=== PATIENT | male | born 1995 | race Caucasian/White ===

== ENCOUNTER 2016-09-05 23:05 | Emergency (ER) | payer MEDICAID, OTHER ==
[~2016-09-05] VITALS: Ht 185.4 cm; Wt 77.1 kg
[~2016-09-05 23:05] MED LIST: CIPR-225 PO; HYDR-3812 PO; ONDA4TAB8 SL; SULF1TAB38 PO
--- NOTE | 2016-09-06 00:50 | ED General ---
General Chief Complaint: Laceration Stated Complaint: RT FOOT LAC Nursing Triage Note: REPORTS HE STEPPED ON A PIECE OF BROKEN GLASS Nursing Sepsis Screen: No Definite Risk Source of Information: Patient Exam Limitations: No Limitations History of Present Illness Time Seen by Provider: 23:50 Initial Comments This 21-year-old young man presents to the emergency room with complaints of a laceration on the right heel. He stepped on a broken piece of glass on his back deck. He does not believe any foreign material remains. He requires a tetanus booster. He reports a significant amount of bleeding was present. Allergies and Home Medications Allergies Coded Allergies: No Known Drug Allergies (Unverified , 02/05/11) Home Medications Ciprofloxacin HCl 500 Mg Tablet, 500 MG PO BID, #20 Prescribed by: NEAL RUVALCABA on 02/26/15 230 Hydrocodone/Acetaminophen 1 Each Tablet, 1-2 EACH PO Q4H PRN for PAIN, #20 Prescribed by: NEAL RUVALCABA on 02/26/15 2307 Ondansetron 4 Mg Tab.rapdis, 4 MG SL Q4H PRN for NAUSEA/VOMITING, #10 Prescribed by: NEAL RUVALCABA on 02/26/15 230 Sulfamethoxazole/Trimethoprim 1 Each Tablet, 1 EACH PO BID, #10 Prescribed by: NEAL RUVALCABA on 09/06/16 0057 Constitutional: no symptoms reported Musculoskeletal: no symptoms reported Skin: see HPI Psychiatric/Neurological: No Symptoms Reported Past Jsjujer-Rkwual-Vhmsix Hx Patient Social History Alcohol Use: Denies Use Recreational Drug Use: No Smoking Status: Never a Smoker Recent Foreign Travel: No Contact w/Someone Who Travel: No Recent Infectious Disease Expo: No Recent Hopitalizations: No Seasonal Allergies Seasonal Allergies: No Surgeries HX Surgeries: No Respiratory Hx Respiratory Disorders: No Cardiovascular Hx Cardiac Disorders: No Neurological Hx Neurological Disorders: No Genitourinary Hx Genitourinary Disorders: No Gastrointestinal Hx Gastrointestinal Disorders: No Musculoskeletal Hx Musculoskeletal Disorders: No Endocrine Hx Endocrine Disorders: No HEENT HX ENT Disorders: No Cancer Hx Cancer: No Psychosocial Hx Psychiatric Problems: No Integumentary HX Skin/Integumentary Disorder: No Blood Transfusions Hx Blood Disorders: No Adverse Reaction to a Blood Tr: No Family Medical History Significant Family History: Renal Disease Physical Exam Vital Signs Vital Sign - Last 12Hours 09/05/16 23:41 Temp 97.2 Pulse 67 Resp 20 B/P (MAP) 132/88 Pulse Ox 99 O2 Delivery Room Air Capillary Refill : Less Than 3 Seconds General Appearance: No Apparent Distress, WD/WN HEENT: Normal ENT Inspection Respiratory: No Respiratory Distress Extremity: Other (Approximately 3 cm curvilinear shallow laceration on the right heel) Neurologic/Psychiatric: Alert, Oriented x3, No Motor/Sensory Deficits, Normal Mood/Affect, nursing 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 Wound was then approximated with Mastisol and Steri-Strips. Progress/Results/Core Measures Results/Orders My Orders Vital Signs/I&O Blood Pressure Mean: 103 Progress Note : Progress Note X-ray of the foot was obtained to ensure no foreign bodies remained. X-ray was normal. Wound was approximated with Steri-Strips after cleaning. Antibiotic was administered for infection prophylaxis. Tetanus booster was administered. Diagnostic Imaging Diagonstic Imaging: Xray Comments X-ray of the right foot was viewed by me. Report not yet available. No acute abnormalities or foreign bodies identified. Departure Impression Impression: Primary Impression: Laceration of foot Qualified Codes: S91.311A - Laceration without foreign body, right foot, initial encounter Disposition: 01 HOME, SELF-CARE Condition: Improved Departure-Patient Inst. Decision time for Depature: 00:35 Referrals: SANTOSH BROWNLEE DO (PCP) Primary Care Physician Patient Instructions: NO INSTRUCTIONS GIVEN Add. Discharge Instructions: Keep the wound covered when active until healed. Avoid submersion but you may shower as usual. Avoid walking as much as possible for the next 5 days. Complete your antibiotics as prescribed. Monitor the wound for signs of infection such as increasing pain, increasing swelling, increasing redness, fever, or puslike drainage. Return to care if you notice these symptoms. You may take Tylenol and/or ibuprofen for pain. Allow the Steri-Strips to slough off naturally. Do not peel them away. All discharge instructions reviewed with patient and/or family. Voiced understanding. Scripts Sulfamethoxazole/Trimethoprim (Bactrim Ds Tablet) 1 Each Tablet 1 EACH PO BID, #10 TAB Prov: NEAL WHEELER MD 09/06/16 Work/School Note: Work Release Form Date Seen in the Emergency Department: Sep 06, 2016 Return to Work: Sep 06, 2016 Other Restrictions Listed Below: Light duty with minimal walking and standing 48 hours NEAL WHEELER MD Sep 06, 2016 00:50
[2016-09-06] MEDS ORDERED: SULF1TAB35 PO (00:57)
[2016-09-06] MEDS ORDERED: TETANUS,DIPTH,PERTUSS P/F (BOOSTRIX) 0.5 ML VIAL IM ONE (01:00)
[2016-09-06] MEDS ORDERED: TRIM/SULFAMETH 160/800 (SEPTRA DS) TAB PO ONE (01:00)
[2016-09-06 01:26] VITALS: BP 0/0
--- NOTE | 2016-09-06 07:48 | Diagnostic Imaging Report ---
INDICATION: Laceration to the heel of the right foot FINDINGS: 2 views of the right foot demonstrate normal ossification. No fracture, dislocation or foreign body is present. IMPRESSION: Negative right foot. Dictated by: Dictated on workstation # [id number]
--- OUTSIDE RECORDS SUMMARY | 2016-10-07 01:06 | XMS REPORT ---
Author MARIAH [facility] eClinicalWorks Address Unknown Phone Unavailable Care Team Providers Care Supervisor Patching Name Role Phone MARIAH HAIDER CP Unavailable Allergies, Adverse Reactions, Alerts Substance Reaction Event Type N.K.D.A. Info Not Available Non Drug Allergy Problems Problem Type Condition Code Onset Dates Condition Status Problem Pain in joint, shoulder region 719.41 Active Problem Acute bronchitis 466.0 Active Problem Kidney stone N20.0 Active Problem Chest pain, unspecified 786.50 Active Assessment Kidney stone N20.0 Active Medications Medication Code System Code Instructions Start Date End Date Status Dosage Flomax [facility] [address]-22 0.4 MG Orally Once a day from repository Mar 16, 2015 Apr 15, 2015 1 capsule 30 minutes after the same meal each day Ketorolac Tromethamine [facility] [address]-04 10 MG Orally every 6 hrs Mar 16, 2015 Mar 21, 2015 1 tablet as needed Uroxatral [facility] [address]-13 10 MG Orally Once a day Mar 16, 2015 Apr 15, 2015 1 tablet immediately after the same meal Procedures Procedure Coding System Code Date Office Visit, Est Pt., Level 3 CPT-4 67945 Mar 16, 2015 Vital Signs Date/Time: Mar 16, 2015 Temperature 98.1 F Weight 176.2 lbs Height 70.5 in BMI 24.92 Index Blood Pressure Diastolic 70 mmHg Blood Pressure Systolic 110 mmHg Cardiac Monitoring Heart Rate 82 bpm BMIPercentile 72.16 % Wt Percentile 77.45 % Results No Known Results Summary Purpose eClinicalWorks Submission
--- OUTSIDE RECORDS SUMMARY | 2016-10-07 01:06 | XMS REPORT ---
Author Author CATIE KAUFMAN Organization e[employer] Address Unknown Phone Unavailable Care Team Providers Care Oven Unloader Name Role Phone CATIE KAUFMAN CP Unavailable Allergies, Adverse Reactions, Alerts Substance Reaction Event Type N.K.D.A. Info Not Available Non Drug Allergy Problems Problem Type Condition Code Onset Dates Condition Status Problem Acute bronchitis 466.0 Active Problem Chest pain, unspecified 786.50 Active Problem Pain in joint, shoulder region 719.41 Active Assessment Left sided abdominal pain 789.09 Active Medications Medication Code System Code Instructions Start Date End Date Status Dosage Zofran [facility] [address]-59 4 MG Orally every 6 hours prn 1 tablets Cipro [facility] [address]-59 500 MG Orally Twice a day- voucher Feb 28, 2015 Mar 10, 2015 1 tablet Procedures Procedure Coding System Code Date Office Visit, Est Pt., Level 3 CPT-4 79132 Feb 28, 2015 Vital Signs Date/Time: Feb 28, 2015 Temperature 98.3 F Weight 180.2 lbs Height 70.5 in BMI 25.49 Index Blood Pressure Diastolic 74 mmHg Blood Pressure Systolic 128 mmHg Cardiac Monitoring Heart Rate 84 bpm BMIPercentile 77.1 % Wt Percentile 81.22 % Results No Known Results Summary Purpose eClinicalWorks Submission
--- OUTSIDE RECORDS SUMMARY | 2016-10-07 01:06 | XMS REPORT ---
Author Author JUDY BURTON Organization e[employer] Address Unknown Phone Unavailable Care Team Providers Care Fall Internship Name Role Phone JUDY BURTON CP Unavailable Allergies, Adverse Reactions, Alerts Substance Reaction Event Type N.K.D.A. Info Not Available Non Drug Allergy Problems Problem Type Condition Code Onset Dates Condition Status Problem Pain in joint, shoulder region 719.41 Active Problem Acute bronchitis 466.0 Active Problem Kidney stone N20.0 Active Assessment Rib pain on left side R07.81 Active Assessment Bradycardia R00.1 Active Problem Chest pain, unspecified 786.50 Active Assessment Acute left-sided thoracic back pain M54.6 Active Medications Medication Code System Code Instructions Start Date End Date Status Dosage Ibuprofen [facility] [address]-29 800 MG Orally Three times a day with food Jan 15, 2016 Feb 14, 2016 1 tablet PredniSONE [facility] [address]-20 20 mg Orally Once a day Jan 15, 2016 Jan 20, 2016 1 tablet Procedures Procedure Coding System Code Date ELECTROCARDIOGRAM, TRACING CPT-4 28497 Jan 15, 2016 Office Visit, Est Pt., Level 3 CPT-4 97038 Jan 15, 2016 CHEST X-RAY CPT-4 61530 Jan 15, 2016 Vital Signs Date/Time: Jan 15, 2016 Cardiac Monitoring Heart Rate 86 bpm Weight 169 lbs Height 70.5 in BMI 23.90 Index Blood Pressure Diastolic 76 mmHg Blood Pressure Systolic 110 mmHg Results No Known Results Summary Purpose eClinicalWorks Submission
--- OUTSIDE RECORDS SUMMARY | 2016-10-07 01:06 | XMS REPORT ---
Author Author CATIE KAUFMAN Organization e[employer] Address Unknown Phone Unavailable Care Team Providers Care Ed Physicians Name Role Phone CATIE KAUFMAN CP Unavailable Allergies No Known Allergies Problems Problem Type Condition Code Onset Dates Condition Status Problem Acute bronchitis 466.0 Active Problem Chest pain, unspecified 786.50 Active Problem Pain in joint, shoulder region 719.41 Active Assessment Renal calculus, left N20.0 Active Assessment Abnormal finding on CT scan R93.8 Active Medications No Known Medications Results No Known Results Summary Purpose eClinicalWorks Submission
--- OUTSIDE RECORDS SUMMARY | 2016-10-07 01:06 | XMS REPORT | Continuity of Care Document ---
Author Author [facility] Address Unknown Phone Unavailable Allergies Active Description Code Type Severity Reaction Onset Reported/Identified Relationship to Patient Clinical Status Yes No Known Drug Allergies [id number] Drug Allergy Unknown N/ A 02/05/2011 Medications Problems Date Dx Coded Attending Type Code Diagnosis Diagnosed By 09/01/2008 GILLIAN OLSON APRN R 008.8 GASTROENTERITIS VIRAL 07/20/2009 GILLIAN OLSON APRN R 611.1 HYPERTROPHY OF RIGHT BREAST 09/30/2009 GILLIAN OLSON APRN R V06.5 DT, TETANUS-DIPHTHERIA [Td] ,TDAP 01/11/2010 GILLIAN OLSON APRN R V70.0 ROUTINE GENERAL MEDICAL EXAMINATION AT A HEALTH CARE FACILITY 05/28/2010 Ot 462 02/05/2011 Ot 682.3 06/27/2011 GILLIAN OLSON APRN R 466.0 BRONCHITIS, ACUTE 06/27/2011 GILLIAN OLSON APRN R 786.50 UNSPECIFIED CHEST PAIN 05/16/2014 GILLIAN OLSON APRN R 719.41 PAIN IN JOINT INVOLVING SHOULDER REGION 02/26/2015 SUMMER WAN, NEAL Humphries Ot 592.1 CALCULUS OF URETER 02/26/2015 SUMMER WAN, NEAL Humphries Ot 787.01 NAUSEA WITH VOMITING 02/26/2015 SUMMER WAN, NEAL Humphries Ot 789.04 ABDOMINAL PAIN, LEFT LOWER QUADRANT 03/03/2015 MADL, CATIE L SUPERVISOR OPENING AND PICKING Ot 789.09 03/23/2015 MADL, CATIE L SUPERVISOR OPENING AND PICKING Ot 789.09 05/03/2015 MADL, CATIE L SUPERVISOR OPENING AND PICKING Ot 789.09 05/03/2015 MADL, CATIE L SUPERVISOR OPENING AND PICKING Ot 789.09 05/10/2015 MADL, CATIE L SUPERVISOR OPENING AND PICKING Ot 789.09 09/05/2016 MADL, CATIE L SUPERVISOR OPENING AND PICKING Ot 789.09 ABDOMINAL PAIN, OTHER SPECIFIED SITE 09/06/2016 SUMMER WAN, NEAL Humphries Ot S91.311A LACERATION WITHOUT FOREIGN BODY, RIGHT F 09/06/2016 NEAL WHEELER MD Ot W25.XXXA CONTACT WITH SHARP GLASS, INITIAL ENCOUN 09/06/2016 NEAL WHEELER MD Ot Y99.8 OTHER EXTERNAL CAUSE STATUS 09/06/2016 NEAL WHEELER MD Ot Z23 ENCOUNTER FOR IMMUNIZATION 09/06/2016 NEAL WHEELER MD Ot S91.311A LACERATION WITHOUT FOREIGN BODY, RIGHT F 09/06/2016 NEAL WHEELER MD Ot W25.XXXA CONTACT WITH SHARP GLASS, INITIAL ENCOUN 09/06/2016 NEAL WHEELER MD Ot Y99.8 OTHER EXTERNAL CAUSE STATUS 09/06/2016 NEAL WHEELER MD Ot Z23 ENCOUNTER FOR IMMUNIZATION Procedures Results Encounters ACCT No. Visit Date/Time Discharge Status Pt. Type Provider Facility Loc./Unit Complaint [id number] 05/16/2014 14:43:00 05/16/2014 23: 59:59 CLS Outpatient GILLIAN OLSON APRN
--- OUTSIDE RECORDS SUMMARY | 2016-10-07 01:06 | XMS REPORT | Continuity of Care Document ---
Author Author [facility] Organization [facility] Address Unknown Phone Unavailable Care Team Providers Care Drawing Frame Tender Name Role Phone Rimma Rangel PCP [phone] Source Comments Some departments are not documenting in the electronic medical record. If you do not see the information that you expected, contact Release of Information in the Health Information Management department at [phone] for further assistance in locating additional records.[facility] Active Allergies and Adverse Reactions No Known Allergies Current Medications Prescription Sig. Disp. Refills Start End Date Status Date oxyCODONE/acetaminophen Take 1-2 Tabs by mouth 30 Tab 0 08/31/19 Active (PERCOCET; ENDOCET; every 4 hours as needed 16 ROXICET) 5/325 mg tablet for Pain Earliest Fill Date: 08/31/15 senna (SENNA) 8.6 mg Take 2 Tabs by mouth at 90 Tab 3 08/31/19 Active tablet bedtime daily. 16 tamsulosin (FLOMAX) 0.4 Take 1 Cap by mouth 60 Cap 0 08/31/19 Active mg capsule daily. 16 Active Problems Problem Noted Date Kidney stone 04/10/2015 Overview: 04/10/15: OSH CT demonstrates 8.2 mm & 2 mm L renal stones. Also demonstrated 4.5 mm stone in the bladder that he states that has since passed. Stone sent for analysis at [facility] - requested stone analysis. 07/31/15 - + L flank pain. KUB with L renal calculi L ast Assessment & Plan: 19M with persistent, symptomatic L nephrolithiasis desiring treatment. Discussed options with patient including observation, ESWL, or URS with LL. Patient has elected to pursue ESWL. - Patient consented and posted for ESWL on 08/31/15 - Urine culture, BMP - DOS orders placed Social History Tobacco Use Types Packs/Day Years Used Date Never Smoker Smokeless Tobacco: Never Used Alcohol Use Drinks/Week oz/Week Comments No 0 Standard 0.0 drinks or equivalent Last Filed Vital Signs Vital Sign Reading Time Taken Blood Pressure 139/76 08/31/2015 11:15 AM CDT Pulse 53 08/31/2015 11:15 AM CDT Temperature 36.8 C (98.2 F) 08/31/2015 11:15 AM CDT Respiratory Rate - - Height 1.88 m (6' 2.02") 08/31/2015 8:03 AM CDT Weight 76.2 kg (167 lb 15.9 oz) 08/31/2015 8:03 AM CDT Body Mass Index 21.56 08/31/2015 8:03 AM CDT Oxygen Saturation 96% 08/31/2015 11:15 AM CDT Plan of Care Health Maintenance Due Date Last Done Comments Physical (Comprehensive) 2002 Exam Hpv Vaccines (#1) 2006 Pertussis Vaccine 2006 Tetanus Vaccine 2012 Influenza Vaccine 01/31/2017 Results from Last 3 Months Not on file
== END 2016-09-06 01:26 | disposition home or self-care (01) ==
LOC: EDUNIT# 23:05 → ER 23:14
DX: S91.311A Laceration without foreign body, right foot, initial encounter (principal); Z23 Encounter for immunization; W25.XXXA Contact with sharp glass, initial encounter; Y99.8 Other external cause status
CPT/HCPCS: 73620; 90471; 90715

== ENCOUNTER 2023-01-16 00:58 | Emergency (ER) | payer SELFPAY ==
[~2023-01-16] VITALS: Ht 185 cm; Wt 77.0 kg
[~2023-01-16 00:58] MED LIST changes: +ACHD5005 PO; -HYDR-3812 PO
[2023-01-16] MEDS ORDERED: KETOROLAC INJ 30 MG/ML VIAL IVP STA (01:08)
[2023-01-16] MEDS ORDERED: ONDANSETRON 4 MG/2 ML (SDV) Z0FRAN IVP ONE (01:15)
[2023-01-16] MEDS ORDERED: LACTATED RINGERS 1,000 ML IV ONE (01:15)
[2023-01-16 01:24] LABS: BASOPHILS # (AUTO) 0.1 10^3/uL (0.0-0.1); BASOPHILS % (AUTO) 1 % (0-10); EOSINOPHILS # (AUTO) 0.4 10^3/uL (0.0-0.3); EOSINOPHILS % (AUTO) 4 % (0-10); HEMATOCRIT 46 % (40-54); HEMOGLOBIN 15.8 g/dL (13.3-17.7); LYMPHOCYTES # (AUTO) 4.2 10^3/uL (1.0-4.0); LYMPHOCYTES % (AUTO) 41 % (12-44); MEAN CORPUSCULAR HEMOGLOBIN 29 pg (25-34); MEAN CORPUSCULAR HGB CONC 34 g/dL (32-36); MEAN CORPUSCULAR VOLUME 85 fL (80-99); MEAN PLATELET VOLUME 9.1 fL (9.0-12.2); MONOCYTES # (AUTO) 0.8 10^3/uL (0.0-1.0); MONOCYTES % (AUTO) 8 % (0-12); NEUTROPHILS # (AUTO) 4.8 10^3/uL (1.8-7.8); NEUTROPHILS % (AUTO) 47 % (42-75); PLATELET COUNT 283 10^3/uL (130-400); WHITE BLOOD COUNT 10.3 10^3/uL (4.3-11.0)
[2023-01-16 01:34] LABS: ALBUMIN 4.8 GM/DL (3.2-4.5); CHLORIDE 105 MMOL/L (98-107); POTASSIUM 2.9 MMOL/L (3.6-5.0); SODIUM 142 MMOL/L (135-145)
[2023-01-16 01:35] LABS: AMYLASE 31 U/L (25-125); CALCIUM 9.4 MG/DL (8.5-10.1)
[2023-01-16 01:36] LABS: GLUCOSE 103 MG/DL (70-105); TOTAL PROTEIN 7.6 GM/DL (6.4-8.2)
[2023-01-16 01:38] LABS: BILIRUBIN,TOTAL 0.5 MG/DL (0.1-1.0); CARBON DIOXIDE 22 MMOL/L (21-32)
[2023-01-16 01:40] LABS: ALKALINE PHOSPHATASE 61 U/L (40-136); CREATININE SERUM 1.05 MG/DL (0.60-1.30); GFR ESTIMATED 100
[2023-01-16 01:41] LABS: BUN/CREATININE RATIO 16
[2023-01-16 01:43] LABS: ALANINE AMINOTRANSFERASE 26 U/L (0-55); LIPASE 36 U/L (8-78)
[2023-01-16 02:13] LABS: CLARITY,URINE SL CLOUDY; COLOR,URINE YELLOW
[2023-01-16 02:16] LABS: GLUCOSE, URINE (UA) NEGATIVE (NEGATIVE); PROTEIN,URINE TRACE (NEGATIVE)
[2023-01-16 02:17] LABS: AMORPHOUS SEDIMENT,UR MOD AMOR PHOSPHATE /LPF; BACTERIA,URINE FEW /HPF; BILIRUBIN,URINE NEGATIVE (NEGATIVE); KETONES,URINE 1+ (NEGATIVE); LEUKOCYTE ESTERASE ,URINE NEGATIVE (NEGATIVE); NITRITE,URINE NEGATIVE (NEGATIVE); SQUAMOUS EPITHELIAL CELL,UR 0-2 /HPF
--- NOTE | 2023-01-16 02:19 | ED GU-Male ---
General Chief Complaint: Abdominal/GI Problems Stated Complaint: LEFT SIDE BACK PAIN Nursing Triage Note: LEFT LOWER BACK PAIN, KNOWN KIDNEY STONE. Source: patient History of Present Illness Date Seen by Provider: Jan 16, 2023 Time Seen by Provider: 01:04 Initial Comments PT ARRIVES VIA POV FROM HOME C/O LEFT FLANK PAIN RADIATING TO LLQ STATES HE HAS KNOWN ABOUT THIS KIDNEY STONE FOR 1 1/2 MONTHS. WAS SEEN AT [facility] 2 WEEKS AGO, AND IS TO HAVE A SONOGRAM IN THE MORNING FOR IT. THIS PAIN BEGAN AT 2129, WITH NAUSEA / VOMITING AROUND 2029. VOMITED X 1. PT HAS BEEN DRINKING WATER AND KEEPING IT DOWN--PT ARRIVES WITH A BOTTLE OF WATER HE HAS NOT HAD ANY DIFFICULTY URINATING AND NO OBVIOUS HEMATURIA NO FEVER PT TOOK 1 IBUPROFEN 200 MG EARLIER, NO RELIEF. PT HAS HAD LITHOTRIPSY AT SEVERAL YEARS AGO HE HAS NOT SEEN A UROLOGIST SINCE THEN. PCP: [facility] Allergies and Home Medications Allergies Coded Allergies: No Known Drug Allergies (Unverified , 02/05/11) Patient Home Medication List Home Medication List Reviewed: Yes Ciprofloxacin HCl (Ciprofloxacin HCl) 500 Mg Tablet, 500 MG PO BID Prescribed by: DIAN KAYE on 01/16/23448 Hydrocodone/Ibuprofen (Hydrocodone-Ibuprofen 7.5-200) 7.5 Mg-200 Mg Tablet, 1-2 TAB PO Q4H PRN for PAIN-MODERATE Prescribed by: DINA KAYE on 01/16/23449 Ondansetron (Ondansetron Odt) 8 Mg Tab.rapdis, 8 MG PO Q6H Prescribed by: DINA KAYE on 01/16/23448 Tamsulosin HCl (Flomax) 0.4 Mg Cap, 0.4 MG PO DAILY Prescribed by: DINA KAYE on 01/16/23448 Discontinued Medications Ciprofloxacin HCl (Cipro) 500 Mg Tablet, 500 MG PO BID Discontinued Reason: No Longer Taking Prescribed by: NEAL RUVALCABA on 02/26/152306 Last Action: Discontinued Hydrocodone Bit/Acetaminophen (Lortab 5 Mg Tablet) 1 Each Tablet, 1-2 EACH PO Q4H PRN for PAIN Discontinued Reason: No Longer Taking Prescribed by: NEAL RUVALCABA on 02/26/152306 Last Action: Discontinued Ondansetron (Zofran Odt) 4 Mg Tab.rapdis, 4 MG SL Q4H PRN for NAUSEA/VOMITING Discontinued Reason: No Longer Taking Prescribed by: NEAL RUVALCABA on 02/26/15 230 Last Action: Discontinued Sulfamethoxazole/Trimethoprim (Bactrim Ds Tablet) 1 Each Tablet, 1 EACH PO BID Discontinued Reason: No Longer Taking Prescribed by: NEAL RUVALCABA on 09/06/16 0057 Last Action: Discontinued Review of Systems Review of Systems Constitutional: no symptoms reported Respiratory: no symptoms reported Cardiovascular: no symptoms reported Gastrointestinal: see HPI Genitourinary: see HPI Musculoskeletal: see HPI Skin: no symptoms reported Psychiatric/Neurological: No Symptoms Reported Endocrine: No Symptoms Reported Past Tywidia-Awsncv-Ywyikh Hx Patient Social History Tobacco Use?: No Substance use?: No Alcohol Use?: No Pt feels they are or have been: No Seasonal Allergies Seasonal Allergies: No Past Medical History Surgery/Hospitalization HX: LITHOTRYPSY, KIDNEY STONES Surgeries: Yes (LITHOTRIPSY) Renal Respiratory: No Cardiac: No Neurological: No Genitourinary: Yes Kidney Stones Gastrointestinal: No Musculoskeletal: No Endocrine: No HEENT: No Cancer: No Psychosocial: No Integumentary: No Blood Disorders: No Adverse Reaction/Blood Tranf: No Family Medical History Renal Disease Physical Exam Vital Signs Vital Signs - First Documented 01/16/23 01:03 Temp 35.7 Pulse 63 Resp 18 B/P (MAP) 122/90 (101) Pulse Ox 100 O2 Delivery Room Air Capillary Refill : Less Than 3 Seconds Height, Weight, BMI Height: 6'1.00" Weight: 170lbs. oz. 77.749551vf; 22.00 BMI Method:Stated General Appearance: WD/WN, other (ANXIOUS, DRAMATIC, MOANING, HYPERVENTILATING. ) Cardiovascular: regular rate, rhythm Respiratory: normal breath sounds Gastrointestinal: soft, tenderness (LLQ AND LEFT FLANK) Back: CVA tenderness (L) Extremities: normal inspection Neurologic/Psychiatric: no motor/sensory deficits, alert, oriented x 3 Skin: normal color, warm/dry, tattoos/piercings (EXTENSIVE TATTOOS) Progress/Results/Core Measures Suspected Sepsis SIRS Temperature: Pulse: 63 Respiratory Rate: 18 Laboratory Tests 01/16/23 01:09: White Blood Count 10.3 Blood Pressure 122 /90 Mean: 101 Laboratory Tests 01/16/23 01:09: Creatinine 1.05, Platelet Count 283, Total Bilirubin 0.5 Results/Orders Lab Results Laboratory Tests Test 01/16/23 01:09 01/16/23 02:00 Range/Units White Blood Count 10.3 4.3-11.0 10^3/uL Red Blood Count 5.42 4.30-5.52 10^6/uL Hemoglobin 15.8 13.3-17.7 g/dL Hematocrit 46 40-54 % Mean Corpuscular Volume 85 80-99 fL Mean Corpuscular Hemoglobin 29 25-34 pg Mean Corpuscular Hemoglobin Concent 34 32-36 g/dL Red Cell Distribution Width 12.9 10.0-14.5 % Platelet Count 283 130-400 10^3/uL Mean Platelet Volume 9.1 9.0-12.2 fL Immature Granulocyte % (Auto) 0 % Neutrophils (%) (Auto) 47 42-75 % Lymphocytes (%) (Auto) 41 12-44 % Monocytes (%) (Auto) 8 0-12 % Eosinophils (%) (Auto) 4 0-10 % Basophils (%) (Auto) 1 0-10 % Neutrophils # (Auto) 4.8 1.8-7.8 10^3/uL Lymphocytes # (Auto) 4.2 H 1.0-4.0 10^3/uL Monocytes # (Auto) 0.8 0.0-1.0 10^3/uL Eosinophils # (Auto) 0.4 H 0.0-0.3 10^3/uL Basophils # (Auto) 0.1 0.0-0.1 10^3/uL Immature Granulocyte # (Auto) 0.0 0.0-0.1 10^3/uL Sodium Level 142 135-145 MMOL/L Potassium Level 2.9 L 3.6-5.0 MMOL/L Chloride Level 105 98-107 MMOL/L Carbon Dioxide Level 22 21-32 MMOL/L Anion Gap 15 H 5-14 MMOL/L Blood Urea Nitrogen 17 7-18 MG/DL Creatinine 1.05 0.60-1.30 MG/DL Estimat Glomerular Filtration Rate 100 BUN/Creatinine Ratio 16 Glucose Level 103 70-105 MG/DL Calcium Level 9.4 8.5-10.1 MG/DL Corrected Calcium 8.5-10.1 MG/DL Total Bilirubin 0.5 0.1-1.0 MG/DL Aspartate Amino Transf (AST/SGOT) 24 5-34 U/L Alanine Aminotransferase (ALT/SGPT) 26 0-55 U/L Alkaline Phosphatase 61 40-136 U/L Total Protein 7.6 6.4-8.2 GM/DL Albumin 4.8 H 3.2-4.5 GM/DL Amylase Level 31 25-125 U/L Lipase 36 8-78 U/L Urine Color YELLOW Urine Clarity SL CLOUDY Urine pH 7.0 5-9 Urine Specific [place] 1.020 1.016-1.022 Urine Protein TRACE H NEGATIVE Urine Glucose (UA) NEGATIVE NEGATIVE Urine Ketones 1+ H NEGATIVE Urine Nitrite NEGATIVE NEGATIVE Urine Bilirubin NEGATIVE NEGATIVE Urine Urobilinogen 0.2 < = 1.0 MG/DL Urine Leukocyte Esterase NEGATIVE NEGATIVE Urine RBC (Auto) 3+ H NEGATIVE Urine RBC 10-25 H /HPF Urine WBC NONE /HPF Urine Squamous Epithelial Cells 0-2 /HPF Urine Crystals PRESENT H /LPF Urine Amorphous Sediment MOD RONEY PHOSPHATE H /LPF Urine Bacteria FEW H /HPF Urine Casts NONE /LPF Urine Mucus SMALL H /LPF Urine Culture Indicated NO Urine Opiates Screen NEGATIVE NEGATIVE Urine Oxycodone Screen NEGATIVE NEGATIVE Urine Methadone Screen NEGATIVE NEGATIVE Urine Propoxyphene Screen NEGATIVE NEGATIVE Urine Barbiturates Screen NEGATIVE NEGATIVE Ur Tricyclic Antidepressants Screen NEGATIVE NEGATIVE Urine Phencyclidine Screen NEGATIVE NEGATIVE Urine Amphetamines Screen NEGATIVE NEGATIVE Urine Methamphetamines Screen NEGATIVE NEGATIVE Urine Benzodiazepines Screen NEGATIVE NEGATIVE Urine Cocaine Screen NEGATIVE NEGATIVE Urine Cannabinoids Screen POSITIVE H NEGATIVE My Orders Orders - DINA KAYE DO Ed Iv/Invasive Line Start (01/16/23 01:08) Ct Abd/Pelvis Wo(Kidney Stone) (01/16/23 01:08) Abdomen/Kub 1view (01/16/23 01:08) Amylase (01/16/23 01:08) Cbc With Automated Diff (01/16/23 01:08) Comprehensive Metabolic Panel (01/16/23 01:08) Drug Screen Stat (Urine) (01/16/23 01:08) Lipase (01/16/23 01:08) Ua Culture If Indicated (01/16/23 01:08) Ondansetron Injection (Zofran Injectio (01/16/23 01:15) Ed Iv/Invasive Line Start (01/16/23 01:08) Lactated Ringers (Lr 1000 Ml Iv Solution (01/16/23 01:15) Ketorolac Injection (Ketorolac Injection (01/16/23 01:08) Morphine Injection (Morphine Injection (01/16/23 03:15) Tamsulosin Capsule (Flomax Capsule) (01/16/23 03:15) Medications Given in ED Current Medications Medications Dose Ordered Sig/Lencho Route Start Time Stop Time Status Last Admin Dose Admin Lactated Ringer's 1,000 ml @ 0 mls/hr Q0M ONCE IV 01/16/23 01:15 01/16/23 01:16 DC 01/16/23 01:14 0 MLS/HR Morphine Sulfate 4 mg ONCE ONCE IVP 01/16/23 03:15 01/16/23 03:16 DC 01/16/23 03:07 4 MG Ondansetron HCl 4 mg ONCE ONCE IVP 01/16/23 01:15 01/16/23 01:16 DC 01/16/23 01:14 4 MG Vital Signs/I&O 01/16/23 01:03 Temp 35.7 Pulse 63 Resp 18 B/P (MAP) 122/90 (101) Pulse Ox 100 O2 Delivery Room Air Capillary Refill : Less Than 3 Seconds Blood Pressure Mean: 101 Progress Note : Progress Note GIVEN: -IV FLUIDS -TORADOL -ZOFRAN -MORPHINE -FLOMAX LABS: -CBC UNREMARKABLE -CMP UNREMARKABLE -UA WITH 3+ BLOOD, 10-25 RBC -UDS + FOR [facility] MARKED DELAY IN OBTAINING CT REPORT 0300--RN HAS CONTACTED [facility]. STILL NO REPORT. HAS NOT BEEN ASSIGNED TO RADIOLOGIST YET 5690--[facility] IS CONTACTING [facility] TO EXPEDITE READING. CT ABDOMEN/PELVIS--7 MM STONE IN LEFT URETER, WITH MILD HYDRONEPHROSIS, PER [facility] REPORT SYMPTOMS MUCH IMPROVED/RESOLVED AT DISMISSAL DISCUSSED TEST RESULTS, ANTICIPATED COURSE, NEED FOR FOLLOW UP WITH UROLOGIST, MEDICATIONS, RETURN PRECAUTIONS NO DETERIORATION IN PT'S CONDITION DURING ER STAY REVIEWED PRIOR RECORDS, ALL ER VISITS REVIEWED PRIOR RECORDS--ALL ER VISITS, LAST ONE IN 2017. Diagnostic Imaging Comments KUB--NO ACUTE PROCESS, PENDING RADIOLOGIST REVIEW CT ABDOMEN/PELVIS--PER [facility] VIA FAX AT 3349 -OBSTRUCTIVE 6 X 4 X 7 MM STONE IN LEFT MID URETER, WITH MILD LEFT HYDRONEPHROSIS AND PERINEPHRIC AND PERIURETERAL STRANDING -NON OBSTRUCTIVE 1.1 CM STONE IN LEFT KIDNEY -DIFFUSE BLADDER WALL THICKENING -NO OTHER ACUTE FINDINGS Reviewed: Reviewed by Me Departure Impression Primary Impression: Left ureteral stone Disposition: 01 HOME, SELF-CARE Condition: Improved Departure-Patient Inst. Referrals: [facility] (PCP/Family) Primary Care Physician Patient Instructions: Kidney Stone Diet, Kidney Stone, Adult ED Add. Discharge Instructions: LOTS OF CLEAR LIQUIDS KEEP YOUR APPOINTMENT TODAY FOR ULTRASOUND FOLLOW UP WITH UROLOGIST OF CHOICE SOON POSSIBLE--THERE ARE UROLOGY SERVICES IN [place] AND AT [facility] IN [place], OR YOU MAY RETURN TO WHERE YOU HAVE HAD PRIOR UROLOGICAL PROCEDURES. RETURN TO ER IF YOUR SYMPTOMS WORSEN All discharge instructions reviewed with patient and/or family. Voiced u nderstanding. Scripts Ondansetron (Ondansetron Odt) 8 Mg Tab.rapdis 8 MG PO Q6H, #10 TAB Prov: DINA KAYE DO 01/16/23 Ciprofloxacin HCl (Ciprofloxacin HCl) 500 Mg Tablet 500 MG PO BID, #14 TAB Prov: DINA KAYE DO 01/16/23 Tamsulosin HCl (Flomax) 0.4 Mg Cap 0.4 MG PO DAILY, #10 CAP Prov: DINA KAYE DO 01/16/23 Hydrocodone/Ibuprofen (Hydrocodone-Ibuprofen 7.5-200) 7.5 Mg-200 Mg Tablet 1-2 TAB PO Q4H PRN for PAIN-MODERATE MDD 6 TABS for 7 Days, #20 TAB Prov: DINA KAYE DO 01/16/23 DINA KAYE DO Jan 16, 2023 02:19
[2023-01-16 02:20] LABS: AMPHETAMINE SCREEN, URINE NEGATIVE (NEGATIVE); BARBITURATE SCREEN URINE NEGATIVE (NEGATIVE); BENZODIAZEPINES SCREEN URINE NEGATIVE (NEGATIVE); CANNABINOID SCREEN, URINE POSITIVE (NEGATIVE); COCAINE SCREEN URINE NEGATIVE (NEGATIVE); METHADONE STAT NEGATIVE (NEGATIVE); OPIATE SCREEN URINE NEGATIVE (NEGATIVE); OXYCODONE STAT NEGATIVE (NEGATIVE); PROPOXYPHENE STAT NEGATIVE (NEGATIVE); TRICYCLIC ANTIDEPRESSANTS SCRE NEGATIVE (NEGATIVE)
[2023-01-16] MEDS ORDERED: morphine INJ 4 MG/ML 1 ML (VIAL/SYRINGE) IVP ONE (03:15)
[2023-01-16] MEDS ORDERED: TAMSULOSIN 0.4 MG (FLOMAX) CAP PO SCH (03:15)
[2023-01-16] MEDS ORDERED: ONDA8TAB13 PO (04:49)
[2023-01-16] MEDS ORDERED: TMSL.4C PO (04:49)
[2023-01-16] MEDS ORDERED: HYDR-4085 PO (04:49)
[2023-01-16] MEDS ORDERED: CIPR500T5 PO (04:49)
[2023-01-16 04:52] VITALS: BP 134/93
--- NOTE | 2023-01-16 07:02 | Diagnostic Imaging Report ---
CT ABD/PELVIS WO(KIDNEY STONE) TECHNIQUE: Unenhanced CT imaging of the abdomen and pelvis was performed. 2-D reformats are created and submitted for interpretation. Automatic exposure controls were utilized to optimize patient dose. INDICATION: Flank pain COMPARISON: 03/01/2015 FINDINGS: Lower chest: The lung bases are clear. No pericardial or pleural effusion. Peritoneum: No free intraperitoneal air or fluid. Liver and biliary system: Unenhanced liver is normal. The gallbladder is normal. No biliary duct dilation. Spleen and Pancreas: Spleen is normal. Unenhanced pancreas is grossly normal. Adrenals: Normal. tract: Mild left hydronephrosis due to a 5 mm stone in the proximal one 3rd of the left ureter. Stable 8 mm stone in the upper pole left kidney. Additional nonobstructing 4 mm stone is present lower pole the left kidney. Right-sided ureteral stone. Partially exophytic 0.7 x 1.3 cm nodule in the mid right kidney is new since prior exam. Urinary bladder is decompressed. GI tract: Stomach is decompressed. No bowel obstruction. No pericolonic inflammatory changes. Appendix is normal. Vasculature and Lymph nodes: Normal caliber aorta. No abdominal or pelvic lymphadenopathy. Musculoskeletal: No concerning osseous lesion. IMPRESSION: 1. Mild left hydronephrosis due to a 5 mm stone located in the proximal left ureter. 2. Indeterminate right renal nodule most likely a cyst. Follow-up nonemergent renal ultrasound is advised to confirm this is indeed cystic in nature. Dictated by: Dictated on workstation # [id number]
--- NOTE | 2023-01-16 08:08 | Diagnostic Imaging Report ---
ABDOMEN/KUB 1VIEW INDICATION: Abdominal pain COMPARISON: CT abdomen pelvis performed earlier same day TECHNIQUE: Supine AP view the abdomen FINDINGS: The 5 mm proximal ureteral stone is seen along the left lateral margin of the L3-L4 disc space. Nonobstructing mineralization the upper pole left kidney is again noted. Nonobstructive bowel gas pattern. Normal regional skeleton. IMPRESSION: The 5 mm proximal left ureteral stone is located at the level of the L3-L4 disc space. Dictated by: Dictated on workstation # [id number]
== END 2023-01-16 04:55 | disposition home or self-care (01) ==
LOC: EDUNIT# 00:58 → ER 01:01
DX: N13.2 Hydronephrosis with renal and ureteral calculous obstruction (principal)
CPT/HCPCS: 36415; 74018; 74176; 80053; 80306; 81000; 82150; 83690; 85025

== ENCOUNTER 2023-01-25 02:05 | Emergency (ER) | payer BC ==
[~2023-01-25] VITALS: Ht 185.5 cm; Wt 77.0 kg
[~2023-01-25 02:05] MED LIST changes: +CIPR500T5 PO; +HYDR-4085 PO; +ONDA8TAB13 PO; +TMSL.4C PO
[2023-01-25] MEDS ORDERED: morphine INJ 10 MG/ML 1ML (SYR OR VIAL) IVP STA ×2 (02:18→02:43)
--- NOTE | 2023-01-25 02:22 | ED Abdominal Pain ---
General Chief Complaint: Abdominal/GI Problems Stated Complaint: LEFT SIDE KIDNEY STONE Source of Information: Patient Exam Limitations: No Limitations History of Present Illness Date Seen by Provider: Jan 25, 2023 Time Seen by Provider: 02:12 Initial Comments Patient is a 27-year-old male who presents to the emergency room with a chief complaint of severe left-sided abdominal pain. He was seen in the emergency department approximately 10 days ago and diagnosed with what was thought to be a 7 mm proximal ureteral stone. He had follow-up with [facility] and 2 referrals for urology were sent out. Patient states he has been doing well taking pain medications until this evening when he developed pain that went from 0 to "10" very quickly. He has had persistent nausea and vomiting. He is passing "very little" urine. No fevers or chills. His significant other who is at the bedside states that he was referred to a general surgeon as well-unsure what that was for. No reported fevers or chills. Normal bowel movements. Timing/Duration: 1-3 Hours Severity/Quality: Severe Location: LUQ, LLQ Radiation: Groin Associated Symptoms: Diaphoresis, Nausea/Vomiting Allergies and Home Medications Allergies Coded Allergies: No Known Drug Allergies (Unverified , 02/05/11) Patient Home Medication List Home Medication List Reviewed: Yes Ciprofloxacin HCl (Ciprofloxacin HCl) 500 Mg Tablet, 500 MG PO BID Prescribed by: DINA KAYE on 01/16/23448 Hydrocodone/Ibuprofen (Hydrocodone-Ibuprofen 7.5-200) 7.5 Mg-200 Mg Tablet, 1-2 TAB PO Q4H PRN for PAIN-MODERATE Prescribed by: DINA KAYE on 01/16/23 045 Ondansetron (Ondansetron Odt) 8 Mg Tab.rapdis, 8 MG PO Q6H Prescribed by: DINA KAYE on 01/16/23448 Oxycodone HCl/Acetaminophen (Percocet 5-325 mg Tablet) 5 Mg-325 Mg Tablet, 1 TAB PO Q6H PRN for PAIN-MODERATE Prescribed by: RICK HARRIS on 01/25/23 0335 Tamsulosin HCl (Flomax) 0.4 Mg Cap, 0.4 MG PO DAILY Prescribed by: DINA KAYE on 01/16/23448 Review of Systems Review of Systems Constitutional: see HPI Respiratory: No Symptoms Reported Cardiovascular: No Symptoms Reported Gastrointestinal: Abdominal Pain, Nausea, Vomiting Genitourinary: Other (decreased urination) Musculoskeletal: back pain Skin: no symptoms reported All Other Systems Reviewed Negative Unless Noted: Yes Past Sghvsit-Ppjfwc-Pzuony Hx Seasonal Allergies Seasonal Allergies: No Past Medical History Surgery/Hospitalization HX: LITHOTRYPSY, KIDNEY STONES Surgeries: Yes (LITHOTRIPSY) Renal Respiratory: No Cardiac: No Neurological: No Genitourinary: Yes Kidney Stones Gastrointestinal: No Musculoskeletal: No Endocrine: No HEENT: No Cancer: No Psychosocial: No Integumentary: No Blood Disorders: No Adverse Reaction/Blood Tranf: No Family Medical History Renal Disease Physical Exam Vital Signs Vital Signs - First Documented 01/25/23 01/25/23 02:11 03:40 Temp 36.4 Pulse 67 Resp 18 B/P (MAP) 143/85 (104) Pulse Ox 99 O2 Delivery Room Air Capillary Refill : Height/Weight/BMI Height: 6'1.00" Weight: 170lbs. oz. 77.422884du; 22.00 BMI Method:Stated General Appearance: WD/WN, moderate distress, other (actively vomiting) HEENT: PERRL/EOMI Respiratory: no respiratory distress, no accessory muscle use Neurologic/Psychiatric: alert, normal mood/affect, oriented x 3 Skin: warm/dry, diaphoresis, pallor Progress/Results/Core Measures Results/Orders Lab Results Laboratory Tests Test 01/25/23 02:17 01/25/23 02:40 Range/Units Sodium Level 143 135-145 MMOL/L Potassium Level 3.8 3.6-5.0 MMOL/L Chloride Level 103 98-107 MMOL/L Carbon Dioxide Level 24 21-32 MMOL/L Anion Gap 16 H 5-14 MMOL/L Blood Urea Nitrogen 17 7-18 MG/DL Creatinine 1.30 0.60-1.30 MG/DL Estimat Glomerular Filtration Rate 77 BUN/Creatinine Ratio 13 Glucose Level 131 H 70-105 MG/DL Calcium Level 10.4 H 8.5-10.1 MG/DL Urine Color YELLOW Urine Clarity CLEAR Urine pH 7.0 5-9 Urine Specific [place] 1.020 1.016-1.022 Urine Protein TRACE H NEGATIVE Urine Glucose (UA) NEGATIVE NEGATIVE Urine Ketones 4+ H NEGATIVE Urine Nitrite NEGATIVE NEGATIVE Urine Bilirubin 1+ H NEGATIVE Urine Urobilinogen 0.2 < = 1.0 MG/DL Urine Leukocyte Esterase NEGATIVE NEGATIVE Urine RBC (Auto) 3+ H NEGATIVE Urine RBC 10-25 H /HPF Urine WBC NONE /HPF Urine Crystals PRESENT H /LPF Urine Amorphous Sediment MOD RONEY URATES H /LPF Urine Bacteria TRACE /HPF Urine Casts PRESENT /LPF Urine Granular Casts 0-2 H /LPF Urine Mucus SMALL H /LPF Urine Culture Indicated NO My Orders Orders - RICK HARRIS MD Ed Iv/Invasive Line Start (01/25/23 02:18) Basic Metabolic Panel (01/25/23 02:18) Ua Culture If Indicated (01/25/23 02:18) Abdomen/Kub 1view (01/25/23 02:18) Morphine Injection (Morphine Injection (01/25/23 02:18) Glycopyrrolate Injection (Glycopyrrolate (01/25/23 02:30) Promethazine Injection (Promethazine I (01/25/23 02:30) Morphine Injection (Morphine Injection (01/25/23 02:43) Ketorolac Injection (Ketorolac Injection (01/25/23 02:45) Oxycodone/Apap 5/325mg Tablet (Oxycodon (01/25/23 03:45) Medications Given in ED Current Medications Medications Dose Ordered Sig/Lencho Route Start Time Stop Time Status Last Admin Dose Admin Glycopyrrolate 0.2 mg ONCE ONCE IV 01/25/23 02:30 01/25/23 02:31 DC 01/25/23 02:27 0.2 MG Ketorolac Tromethamine 15 mg ONCE ONCE IVP 01/25/23 02:45 01/25/23 02:46 DC 01/25/23 02:50 15 MG Oxycodone/ Acetaminophen 1 tab ONCE ONCE PO 01/25/23 03:45 01/25/23 03:44 DC 01/25/23 03:41 1 TAB Promethazine HCl 25 mg ONCE ONCE IVP 01/25/23 02:30 01/25/23 02:31 DC 01/25/23 02:28 25 MG Vital Signs/I&O 01/25/23 01/25/23 02:11 03:40 Temp 36.4 36.4 Pulse 67 55 Resp 18 16 B/P (MAP) 143/85 (104) 115/76 Pulse Ox 99 99 O2 Delivery Room Air Progress Progress Note #1: Time: 02:44 Progress Note Patient pain improving, still bad - requesting more pain medications. Progress Note #2: Time: 03:29 Progress Note Patient reexamined at this time, pain is completely alleviated. Patient seen and evaluated by me, evaluation today includes physical exam, basic metabolic panel, urinalysis and KUB. Pertinent physical exam findings well- developed well-nourished male in moderate to severe distress due to left lower abdominal pain groin pain scrotal pain. He has tenderness to palpation in the left lower quadrant with bowel sounds present. No CVA tenderness. Lungs are clear heart is regular. Patient is slightly diaphoretic. Differential diagnosis based on history and physical exam continued renal colic/renal stone, urinary tract infection, acute kidney injury Labs independently reviewed and interpreted by me. He has a normal basic metabolic panel with normal renal function. His urine is pertinent for blood and ketones. No evidence of infection. KUB interpreted by me and shows the kidney stone to be right at the UV J. No concerning findings for infection, low clinical concern for significant hydronephrosis. He was treated with 2 doses of 5 mg of morphine, 0.2 mg of Robinul, 15 mg of Toradol. He was also given 25 mg of IV Phenergan as well as a liter of lactated Ringer's. He feels much better after these medications. I have encouraged him to continue straining his urine. He is encouraged to follow-up with urology. He does have other nonobstructive stones in his kidneys according to the CT at his last visit. We will change his pain medication to oxycodone from the hydrocodone as it did not alleviate any of his symptoms earlier today. Patient is improved at discharge, all questions are sought and answered. Return precautions provided in both verbal and written format. Diagnostic Imaging Diagonstic Imaging: Xray Comments KUB independent review and interpretation by me -kidney stone appears to be adjacent to the ureterovesicular junction Departure Impression Primary Impression: Left ureteral stone Disposition: 01 HOME, SELF-CARE Condition: Improved Departure-Patient Inst. Decision time for Depature: 03:32 Referrals: [facility] (PCP/Family) Primary Care Physician Patient Instructions: Renal Colic (DC) Add. Discharge Instructions: Drink plenty of fluids to stay well-hydrated. Use the oxycodone/acetaminophen tablets 1 every 6 hours as needed for pain. You can take 1 extra strength Tylenol with each oxycodone tablet. Take a stool softener daily if you are having to take multiple doses of the oxycodone daily. Continue to strain your urine. Return to the emergency department for any worsening pain especially with fever, vomiting or any other emergent, concerning symptoms [facility] [address], [place] [address] [facility] [address], [place] [address] Scripts Oxycodone HCl/Acetaminophen (Percocet 5-325 mg Tablet) 5 Mg-325 Mg Tablet 1 TAB PO Q6H PRN for PAIN-MODERATE MDD 6, #12 TAB Prov: RICK HARRIS MD 01/25/23 Work/School Note: Work Release Form Date Seen in the Emergency Department: Jan 25, 2023 Return to Work: Jan 26, 2023 RICK HARRIS MD Jan 25, 2023 02:22
[2023-01-25] MEDS ORDERED: GLYCOPYRROLATE INJ 0.2 MG/ML 2 ML VIAL IV ONE (02:30)
[2023-01-25] MEDS ORDERED: PROMETHAZINE INJ 25 MG/ML VIAL IVP ONE (02:30)
[2023-01-25 02:37] LABS: POTASSIUM 3.8 MMOL/L (3.6-5.0)
[2023-01-25 02:38] LABS: CALCIUM 10.4 MG/DL (8.5-10.1)
[2023-01-25 02:43] LABS: CREATININE SERUM 1.3 MG/DL (0.60-1.30)
[2023-01-25] MEDS ORDERED: KETOROLAC INJ 15 MG/ML VIAL IVP ONE (02:45)
[2023-01-25 02:58] LABS: BILIRUBIN,URINE 1+ (NEGATIVE); CLARITY,URINE CLEAR; COLOR,URINE YELLOW; GLUCOSE, URINE (UA) NEGATIVE (NEGATIVE); KETONES,URINE 4+ (NEGATIVE); LEUKOCYTE ESTERASE ,URINE NEGATIVE (NEGATIVE); NITRITE,URINE NEGATIVE (NEGATIVE); PROTEIN,URINE TRACE (NEGATIVE)
[2023-01-25 02:59] LABS: AMORPHOUS SEDIMENT,UR MOD AMOR URATES /LPF; BACTERIA,URINE TRACE /HPF; GRANULAR CASTS,URINE 0-2 /LPF
[2023-01-25] MEDS ORDERED: OXYC-199 PO (03:35)
[2023-01-25 03:40] VITALS: BP 115/76
[2023-01-25] MEDS ORDERED: oxyCODONE/ACETAMINOPHEN 5/325MG TABLET PO ONE (03:45)
--- NOTE | 2023-01-25 07:35 | Diagnostic Imaging Report ---
EXAMINATION: Abdominal radiographs, single view, 2 images. DATE: January 25, 2023. CLINICAL INDICATION: 27-year-old male, history of left ureteral stone. Followup exam. COMPARISON: January 16, 2023. COMMENTS: There are calcifications projecting over the left kidney which may reflect renal stones. The previously noted calcification near the level of L3-L4, which may have reflected ureteral stone is not currently identified. There are no abnormally dilated gas-filled segments of bowel. There is no identified pneumatosis or portal venous gas. There is no identified free intraperitoneal air on supine assessment IMPRESSION: . 1. Probable left renal stones without currently visible ureteral stone radiographically. Dictated by: Dictated on workstation # [id number]
== END 2023-01-25 03:44 | disposition home or self-care (01) ==
LOC: EDUNIT# 02:05 → ER 02:08
DX: N13.2 Hydronephrosis with renal and ureteral calculous obstruction (principal); Z98.890 Other specified postprocedural states
CPT/HCPCS: 36415; 74018; 80048; 81000